=== PATIENT | male | born 1975 | race Caucasian/White ===

== ENCOUNTER 2019-05-17 19:26 | Emergency (ER) | payer OTHER ==
[~2019-05-17] VITALS: Ht 170.2 cm; Wt 61.2 kg
[~2019-05-17 19:26] MED LIST: ARIP20 PO; CIPRO500 MG PO; CLON1 PO; ESCI5 PO; FAMO20 PO; FLUV50 PO; OLAN5; PALI3TAB; RISP.25 PO; Zithromax250 MG PO
== END 2019-05-17 20:04 ==
LOC: ER 19:26
DX: Z02.89 Encounter for other administrative examinations (principal); Z87.820 Personal history of traumatic brain injury; Z87.891 Personal history of nicotine dependence; Z88.1 Allergy status to other antibiotic agents
CPT/HCPCS: 99283